=== PATIENT | female | born 1990 | race American Indian/Alaskan Native ===

== ENCOUNTER 2016-08-30 23:36 | Emergency (ER) | payer OTHER ==
--- NOTE | 2016-08-31 01:25 | Emergency Department Report ---
ED ENT HPI - General Chief complaint: Earache Stated complaint: R EAR PAIN Time Seen by Provider: 08/31/16 01:17 Source: patient Mode of arrival: Ambulatory Limitations: No Limitations - History of Present Illness Initial comments: 25-year-old female past medical history none presents with complaint of left- sided earache 4-5 days. Patient denies any ear drainage. Overall hearing intact. States she took some Tylenol with minimal relief of her pain. MD complaint: ear pain Onset/Timin -: days(s) Location: L ear Severity: moderate Severity scale (0 -10): 6 Quality: aching Consistency: constant Improves with: none Worsens with: none - Related Data Previous Rx's Medication Instructions Recorded Last Taken Type Amoxicillin [Amoxicillin TAB] 875 mg PO BID #20 tablet 03/16/16 Unknown Rx traMADol [Ultram 50 MG tab] 50 mg PO BID PRN #14 tablet 03/16/16 Unknown Rx Amoxicillin/K Clav Tab [Augmentin 1 tab PO Q12HR #14 tab 08/31/16 Unknown Rx 875 mg] Carbamide Peroxide 6.5% [Ear Wax 5 drops OT BID #1 bottle 08/31/16 Unknown Rx Drops] Ibuprofen [Motrin] 600 mg PO Q8H PRN #30 tablet 08/31/16 Unknown Rx Allergies Allergy/AdvReac Type Severity Reaction Status Date / Time No Known Allergies Allergy Verified 08/30/16 23:53 ED Dental HPI - General Chief complaint: Earache Stated complaint: R EAR PAIN Time Seen by Provider: 08/31/16 01:17 Source: patient Mode of arrival: Ambulatory Limitations: No Limitations - Related Data Previous Rx's Medication Instructions Recorded Last Taken Type Amoxicillin [Amoxicillin TAB] 875 mg PO BID #20 tablet 03/16/16 Unknown Rx traMADol [Ultram 50 MG tab] 50 mg PO BID PRN #14 tablet 03/16/16 Unknown Rx Amoxicillin/K Clav Tab [Augmentin 1 tab PO Q12HR #14 tab 08/31/16 Unknown Rx 875 mg] Carbamide Peroxide 6.5% [Ear Wax 5 drops OT BID #1 bottle 08/31/16 Unknown Rx Drops] Ibuprofen [Motrin] 600 mg PO Q8H PRN #30 tablet 08/31/16 Unknown Rx Allergies Allergy/AdvReac Type Severity Reaction Status Date / Time No Known Allergies Allergy Verified 08/30/16 23:53 ED Review of Systems ROS: Stated complaint: R EAR PAIN Other details as noted in HPI Constitutional: denies: chills, fever Eyes: denies: eye pain, eye discharge, vision change ENT: denies: ear pain, throat pain Respiratory: denies: cough, shortness of breath, wheezing Cardiovascular: denies: chest pain, palpitations Endocrine: no symptoms reported Gastrointestinal: denies: abdominal pain, nausea, diarrhea Genitourinary: denies: urgency, dysuria, discharge Musculoskeletal: denies: back pain, joint swelling, arthralgia Skin: denies: rash, lesions Neurological: denies: headache, weakness, paresthesias Psychiatric: denies: anxiety, depression Hematological/Lymphatic: denies: easy bleeding, easy bruising ED Past Medical Hx - Past Medical History Previous Medical History?: Yes Hx GERD: Yes (gastric ulcer) - Surgical History Past Surgical History?: No - Social History Smoking Status: Current Every Day Smoker Substance Use Type: Alcohol, Non Opiate Pain - Medications Home Medications: Home Medications Medication Instructions Recorded Confirmed Last Taken Type Amoxicillin [Amoxicillin TAB] 875 mg PO BID #20 tablet 03/16/16 Unknown Rx traMADol [Ultram 50 MG tab] 50 mg PO BID PRN #14 tablet 03/16/16 Unknown Rx Amoxicillin/K Clav Tab [Augmentin 1 tab PO Q12HR #14 tab 08/31/16 Unknown Rx 875 mg] Carbamide Peroxide 6.5% [Ear Wax 5 drops OT BID #1 bottle 08/31/16 Unknown Rx Drops] Ibuprofen [Motrin] 600 mg PO Q8H PRN #30 tablet 08/31/16 Unknown Rx ED Physical Exam - General Limitations: No Limitations General appearance: alert, in no apparent distress - Head Head exam: Present: atraumatic, normocephalic - Eye Eye exam: Present: normal appearance, PERRL, EOMI - ENT ENT exam: Present: mucous membranes moist - Neck Neck exam: Present: normal inspection - Respiratory Respiratory exam: Present: normal lung sounds bilaterally. Absent: respiratory distress - Cardiovascular Cardiovascular Exam: Present: regular rate, normal rhythm. Absent: systolic murmur, diastolic murmur, rubs, gallop - GI/Abdominal GI/Abdominal exam: Present: soft, normal bowel sounds - Extremities Exam Extremities exam: Present: normal inspection - Back Exam Back exam: Present: normal inspection - Neurological Exam Neurological exam: Present: alert, oriented X3, CN II-XII intact, normal gait - Psychiatric Psychiatric exam: Present: normal affect, normal mood - Skin Skin exam: Present: warm, dry, intact, normal color. Absent: rash ED Course Vital Signs 08/30/16 08/31/16 08/31/16 23:50 01:44 01:53 Temperature 98.5 F 98.6 F Pulse Rate 90 85 Respiratory 18 20 20 Rate Blood Pressure 120/75 Blood Pressure 120/76 [Left] O2 Sat by Pulse 100 99 Oximetry 08/31/16 02:03 Temperature Pulse Rate Respiratory 20 Rate Blood Pressure Blood Pressure [Left] O2 Sat by Pulse Oximetry ED Medical Decision Making - Medical Decision Making A/P: Otitis media 1-Augmentin twice a day 7 days 2-Motrin when necessary 3-follow-up with primary care doctor Critical care attestation.: If time is entered above; I have spent that time in minutes in the direct care of this critically ill patient, excluding procedure time. ED Disposition Clinical Impression: Otitis media Qualifiers: Otitis media type: suppurative Laterality: right Chronicity: acute Recurrence: not specified as recurrent Spontaneous tympanic membrane rupture: without spontaneous rupture Qualified Code(s): H66.001 - Acute suppurative otitis media without spontaneous rupture of ear drum, right ear Disposition: DISCHARGED TO HOME OR SELFCARE Is pt being admited?: No Does the pt Need Aspirin: No Condition: Stable Instructions: Otitis Media (ED), Earache (ED) Prescriptions: Amoxicillin/K Clav Tab [Augmentin 875 mg] 1 tab PO Q12HR #14 tab Carbamide Peroxide 6.5% [Ear Wax Drops] 5 drops OT BID #1 bottle Ibuprofen [Motrin] 600 mg PO Q8H PRN #30 tablet PRN Reason: Pain Referrals: BIBIANA FRIED JR, MD [Staff Physician] - 3-5 Days [facility] [Outside] - 3-5 Days [facility] [Outside] - 3-5 Days Forms: Work/School Release Form(ED) Time of Disposition: 01:22
[2016-08-31] MEDS ORDERED: MOTRIN PO ONE (01:26)
[2016-08-31 01:54] VITALS: BP 120/76
== END 2016-08-31 02:05 | disposition home or self-care (01) ==
LOC: ED 23:36
DX: H66.001 Acute suppurative otitis media without spontaneous rupture of ear drum, right ear (principal); K21.9 Gastro-esophageal reflux disease without esophagitis; F17.200 Nicotine dependence, unspecified, uncomplicated
CPT/HCPCS: 99282